=== PATIENT | female | born 1990 | race Caucasian/White ===

== ENCOUNTER 2017-08-25 07:07 | Inpatient (IN) | payer MEDICAID ==
[2017-08-25] MEDS ORDERED: Misoprostol 50 MCG (1/2 of 100 MCG) Tab VAG ONE ×2 (07:09→11:58)
[2017-08-25] MEDS ORDERED: fentaNYL 100 MCG/2 ML SDV IVPUSH PRN (08:02)
[2017-08-25] MEDS ORDERED: Sodium Chloride 0.9% 10 ML Syringe FLUSH PRN (08:02)
[2017-08-25] MEDS ORDERED: Ondansetron 4 MG Tab.DIS PO PRN (08:02)
--- NOTE | 2017-08-25 08:13 | PCM.LDHP ---
L&D History of Present Illness - General Date of Service: 08/25/17 (induction) Admit Problem/Dx: Patient Status Order with Admit Dx/Problem 08/25/17 08:02 Patient Status [ADT] Routine Admission Diagnosis/Problem Admission Diagnosis/Problem Source of Information: Patient History Limitations: Reports: No Limitations - History of Present Illness Introduction:: This 27 year old who is 40 weeks presents for induction of labor. 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 Psychiatric History: Reports: ADD, Panic Attack - Infectious Disease History Infectious Disease History: Reports: Chicken Pox - Past Surgical History GI Surgical History: Reports: Cholecystectomy Other GI Surgeries/Procedures: stools are loose after cholecystectomy, Primary care provider is aware. Social & Family History - Family History Family Medical History: Noncontributory - Tobacco Use Smoking Status *Q: Former Smoker Years of Tobacco use: 2 Packs/Tins Daily: 0.1 Used Tobacco, but Quit: Yes Month/Year Tobacco Last Used: October 2016 Second Hand Smoke Exposure: Yes - Caffeine Use Caffeine Use: Reports: Soda Other Caffeine Use: 2 pops per day - Alcohol Use Days Per Week of Alcohol Use: 0 - Recreational Drug Use Recreational Drug Use: No H&P Review of Systems - Review of Systems: Review Of Systems: See Below General: Reports: No Symptoms HEENT: Reports: No Symptoms Pulmonary: Reports: No Symptoms Cardiovascular: Reports: No Symptoms Gastrointestinal: Reports: No Symptoms Genitourinary: Reports: No Symptoms Musculoskeletal: Reports: No Symptoms Skin: Reports: No Symptoms Psychiatric: Reports: No Symptoms Neurological: Reports: No Symptoms Hematologic/Lymphatic: Reports: No Symptoms Immunologic: Reports: No Symptoms L&D Exam - Exam Exam: See Below - Vital Signs Vital Signs: Last Vital Signs Temp 98.6 F 08/25/17 07:09 Pulse 101 H 08/25/17 07:09 Resp 18 08/25/17 07:09 BP 102/47 L 08/25/17 07:09 Pulse Ox - OB Specific Movement: Active Heart Tones: Present Heart Tones per Min: 145 Heart Rate (FHR) Variability: Moderate (6-25 bmp) Presentation: Vertex Estimated Weight: 8 pounds - Field Score Field Score Cervix Position: Anterior Field Score Consistency: Soft Field Score Effacement: 51-70% Field Score Dilation: 1-2 cm Field Score 's Station: -1 ,0 Field Score Total: 9 - Exam General: Alert, Oriented HEENT: PERRLA, Conjunctiva Clear, EACs Clear, EOMI, Hearing Intact, Mucosa Moist & [place], Nares Patent, Normal Nasal Septum, Posterior Pharynx Clear, TMs Clear Neck: Supple, Trachea Midline Lungs: Clear to Auscultation, Normal Respiratory Effort Cardiovascular: Regular Rate, Regular Rhythm GI/Abdominal Exam: Normal Bowel Sounds, Soft, Non-Tender, No Organomegaly, No Distention, No Abnormal Bruit, No Mass, Pelvis Stable Rectal Exam: Normal Exam, Normal Rectal Tone Genitourinary: Cervical dilitation, Enlarged uterus Back Exam: Normal Inspection, Full Range of Motion Extremities: Normal Inspection, Normal Range of Motion, Non-Tender, No Pedal Edema, Normal Capillary Refill Skin: Warm, Dry, Intact Neurological: Cranial Nerves Intact, Reflexes Equal Bilateral Psychiatric: Alert, Normal Affect, Normal Mood - Patient Data Lab Results Last 24 hrs: Laboratory Results - last 24 hr 08/25/17 08/25/17 08/25/17 Range/Units 07:13 07:13 07:13 WBC 8.4 (4.5-11.0) K/uL RBC 4.35 (3.30-5.50) M/uL Hgb 12.0 (12.0-15.0) g/dL Hct 37.1 (36.0-48.0) % MCV 85 (80-98) fL MCH 28 (27-31) pg MCHC 32 (32-36) % Plt Count 164 (150-400) K/uL Neut % (Auto) 72 H (36-66) % Lymph % (Auto) 21 L (24-44) % [place] % (Auto) 6 (2-6) % Eos % (Auto) 1 L (2-4) % Baso % (Auto) 0 (0-1) % Urine Color Yellow Urine Appearance Cloudy Urine pH 6.0 (4.5-8.0) Ur Specific [place] 1.020 (1.008-1.030) Urine Protein Negative (NEGATIVE) mg/dL Urine Glucose (UA) Normal (NEGATIVE) mg/dL Urine Ketones Negative (NEGATIVE) mg/dL Urine Occult Blood Negative (NEGATIVE) Urine Nitrite Negative (NEGATIVE) Urine Bilirubin Negative (NEGATIVE) Urine Urobilinogen Normal (NORMAL) mg/dL Ur Leukocyte Esterase Large (NEGATIVE) Urine RBC Not seen (0-5) Urine WBC 20-30 H (0-5) Ur Epithelial Cells Many Amorphous Sediment Not seen Urine Bacteria Many Urine Mucus Many Urine Opiates Screen Negative (NEGATIVE) Ur Oxycodone Screen Negative (NEGATIVE) Urine Methadone Screen Negative (NEGATIVE) Ur Propoxyphene Screen Negative (NEGATIVE) Ur Barbiturates Screen Negative (NEGATIVE) Ur Tricyclics Screen Negative (NEGATIVE) Ur Phencyclidine Scrn Negative (NEGATIVE) Ur Amphetamine Screen Negative (NEGATIVE) U Methamphetamines Scrn Negative (NEGATIVE) Urine MDMA Screen Negative (NEGATIVE) U Benzodiazepines Scrn Negative (NEGATIVE) U Cocaine Metab Screen Negative (NEGATIVE) U Marijuana (THC) Screen Negative (NEGATIVE) Result Diagrams: 08/25/17 07:13 - Problem List (1) Elective induction of labor planned SNOMED Code(s): 968702733 ICD Code: [id number] - Status: Acute Current Visit: Yes (2) SNOMED Code(s): 09102735 ICD Code: Z34.90 - ENCNTR FOR SUPRVSN OF NORMAL , UNSP, UNSP TRIMESTER Status: Acute Current Visit: Yes Qualifiers: Weeks of gestation: 40 weeks Qualified Code(s): Z3A.40 - 40 weeks gestation of Problem List Initiated/Reviewed/Updated: Yes Orders Last 24hrs: Active Orders 24 hr Category Date Time Status Patient Status [ADT] Routine ADT 08/25/17 08:02 Ordered Antiembolic Devices [RC] .Routine Care 08/25/17 08:05 Ordered Communication Order [RC] ASDIRECTED Care 08/25/17 08:02 Ordered Heart Tones [RC] PER UNIT ROUTINE Care 08/25/17 08:02 Ordered Notify Provider Vital Signs [RC] PRN Care 08/25/17 08:02 Ordered Notify Provider [RC] PRN Care 08/25/17 08:02 Ordered Up ad Bertha [RC] ASDIRECTED Care 08/25/17 08:02 Ordered VTE/DVT Education [RC] Click to Edit Care 08/25/17 08:05 Ordered Vital Signs [RC] PER UNIT ROUTINE Care 08/25/17 08:02 Ordered Clear Liquid Diet [DIET] Diet 08/25/17 Lunch Ordered CBC W/O DIFF,HEMOGRAM [HEME] Urgent Lab 08/25/17 08:02 Ordered Acetaminophen [Tylenol] Med 08/25/17 08:02 Ordered 650 mg PO Q4H PRN Ondansetron [Zofran ODT] Med 08/25/17 08:02 Ordered 4 mg PO Q4H PRN Sodium Chloride 0.9% [Saline Flush] Med 08/25/17 08:02 Ordered 10 ml FLUSH ASDIRECTED PRN fentaNYL [Sublimaze] Med 08/25/17 08:02 Ordered 100 mcg IVPUSH Q1H PRN DVT/VTE Prophylaxis Reflex [OM.PC] Routine Oth 08/25/17 08:02 Ordered Saline Lock Insert [OM.PC] Routine Oth 08/25/17 08:02 Ordered Resuscitation Status Routine Resus Stat 08/25/17 08:02 Ordered Assessment/Plan Comment:: 27 yr old 40 weeks induction per patient request Field score 9 60/-1 anterior, Cat 1 strip Misoprostol 50 mcg this morning HGB 12 PLT 164,000 Plan for vaginal delivery alter today reassess at noon She would like an epidural later today
--- NOTE | 2017-08-25 12:27 | PCM.PNLD ---
Labor Progress Note - VS & Meds Vital Signs: Last Vital Signs Temp 97.6 F 08/25/17 08:40 Pulse 100 08/25/17 08:40 Resp 18 08/25/17 08:40 BP 121/67 08/25/17 08:40 Pulse Ox 98 08/25/17 08:40 Active Medications: Current Medications Acetaminophen (Tylenol) 650 mg PO Q4H PRN PRN Reason: Pain (Mild 1-3) and fever Fentanyl (Sublimaze) 100 mcg IVPUSH Q1H PRN PRN Reason: Pain (moderate 4-6) Ondansetron HCl (Zofran Odt) 4 mg PO Q4H PRN PRN Reason: Nausea/Vomiting Sodium Chloride (Saline Flush) 10 ml FLUSH ASDIRECTED PRN PRN Reason: Keep Vein Open Discontinued Medications Misoprostol (Cytotec) 50 mcg VAG ONETIME ONE Stop: 08/25/17 07:10 Last Admin: 08/25/17 07:50 Dose: 50 mcg Misoprostol (Cytotec) 50 mcg VAG ONETIME ONE Stop: 08/25/17 11:59 - Uterine Contractions Uterine Monitoring Mode: External [place] Contraction Frequency (min): 5-7 Contraction Duration (sec): 60-70 Contraction Intensity: Mild Uterine Resting Tone: Soft - Monitoring Heart Rate (FHR) Baseline: 140 Heart Rate (FHR) Variability: Minimal (0-5 bpm) Accelerations: Present with Movement Decelerations: None Strip Review: Category I - Vaginal Exam Dilation (cm): 1 Effacement (Percent): 60 Station: 0 Cervical Position: Anterior Sterile Vaginal Exam Performed By: Chuyita Harper Vaginal Exam Comment: Cytotec 50 mcg\vag - Labor Progress (Free Text) Labor Progress: 08/25/17 cervical assessment the same Repeat dose of Misoprostol 50 mcg reassess at 1530 Planning for vaginal delivery
[2017-08-25] MEDS ORDERED: Lactated Ringers 1,000 ML IV SCH (12:45)
[2017-08-25] MEDS ORDERED: Lactated Ringers 1,000 ML IV ONE (15:11)
[2017-08-25] MEDS ORDERED: ePHEDrine 50 MG/ML SDV IVPUSH ONE (15:11)
--- NOTE | 2017-08-25 15:15 | PCM.PNLD ---
Labor Progress Note - VS & Meds Vital Signs: Last Vital Signs Temp 97.5 F 08/25/17 12:20 Pulse 96 08/25/17 13:05 Resp 18 08/25/17 13:05 BP 115/57 L 08/25/17 13:05 Pulse Ox 98 08/25/17 13:05 Active Medications: Current Medications Acetaminophen (Tylenol) 650 mg PO Q4H PRN PRN Reason: Pain (Mild 1-3) and fever Fentanyl (Sublimaze) 100 mcg IVPUSH Q1H PRN PRN Reason: Pain (moderate 4-6) Oxytocin/Sodium Chloride (Pitocin In Ns 20 Units/1,000 Ml) 1,000 mls @ 6 mls/ hr IV TITRATE GABRIELA; Protocol Ondansetron HCl (Zofran Odt) 4 mg PO Q4H PRN PRN Reason: Nausea/Vomiting Sodium Chloride (Saline Flush) 10 ml FLUSH ASDIRECTED PRN PRN Reason: Keep Vein Open Discontinued Medications Lactated Ringer's (Ringers, Lactated) 1,000 mls @ 999 mls/hr IV BOLUS GABRIELA Stop: 08/25/17 13:46 Last Admin: 08/25/17 12:30 Dose: 999 mls/hr Misoprostol (Cytotec) 50 mcg VAG ONETIME ONE Stop: 08/25/17 07:10 Last Admin: 08/25/17 07:50 Dose: 50 mcg Misoprostol (Cytotec) 50 mcg VAG ONETIME ONE Stop: 08/25/17 11:59 Last Admin: 08/25/17 12:20 Dose: 50 mcg - Uterine Contractions Uterine Monitoring Mode: External [place], None in Use Contraction Frequency (min): 3-7 Contraction Duration (sec): 30-70 Contraction Intensity: Mild to Moderate Uterine Resting Tone: Soft - Monitoring Heart Rate (FHR) Baseline: 140 Heart Rate (FHR) Variability: Minimal (0-5 bpm) Accelerations: Present with Movement Decelerations: None Strip Review: Category I - Vaginal Exam Dilation (cm): 2 Effacement (Percent): 75 Station: 0 Cervical Position: Anterior Sterile Vaginal Exam Performed By: Chuyita Harper Vaginal Exam Comment: progress since last check - Labor Progress (Free Text) Labor Progress: 08/25/17 starting pitocin Epidural bolus done and ready reassess at 1730
--- NOTE | 2017-08-25 17:47 | PCM.PNLD ---
Labor Progress Note - VS & Meds Vital Signs: Last Vital Signs Temp 97.7 F 08/25/17 15:30 Pulse 102 H 08/25/17 16:06 Resp 18 08/25/17 16:06 BP 123/61 08/25/17 16:06 Pulse Ox 97 08/25/17 16:06 Active Medications: Current Medications Acetaminophen (Tylenol) 650 mg PO Q4H PRN PRN Reason: Pain (Mild 1-3) and fever Fentanyl (Sublimaze) 100 mcg IVPUSH Q1H PRN PRN Reason: Pain (moderate 4-6) Oxytocin/Sodium Chloride (Pitocin In Ns 20 Units/1,000 Ml) 20 unit in 1,000 mls @ 6 mls/hr IV TITRATE GABRIELA; Protocol Last Titration: 08/25/17 17:06 Dose: 7 munits/min, 21 mls/hr Ondansetron HCl (Zofran Odt) 4 mg PO Q4H PRN PRN Reason: Nausea/Vomiting Sodium Chloride (Saline Flush) 10 ml FLUSH ASDIRECTED PRN PRN Reason: Keep Vein Open Discontinued Medications Ephedrine Sulfate (Ephedrine Sulfate) 5 mg IVPUSH ONETIME ONE Stop: 08/25/17 15:12 Lactated Ringer's (Ringers, Lactated) 1,000 mls @ 999 mls/hr IV BOLUS GABRIELA Stop: 08/25/17 13:46 Last Admin: 08/25/17 12:30 Dose: 999 mls/hr Lactated Ringer's (Ringers, Lactated) 1,000 mls @ 999 mls/hr IV .BOLUS ONE Stop: 08/25/17 16:11 Last Admin: 08/25/17 15:32 Dose: 999 mls/hr Misoprostol (Cytotec) 50 mcg VAG ONETIME ONE Stop: 08/25/17 07:10 Last Admin: 08/25/17 07:50 Dose: 50 mcg Misoprostol (Cytotec) 50 mcg VAG ONETIME ONE Stop: 08/25/17 11:59 Last Admin: 08/25/17 12:20 Dose: 50 mcg - Uterine Contractions Uterine Monitoring Mode: External [place] Contraction Frequency (min): 1-3 Contraction Duration (sec): 30-50 Contraction Intensity: Moderate Uterine Resting Tone: Soft - Monitoring Heart Rate (FHR) Baseline: 140 Heart Rate (FHR) Variability: Moderate (6-25 bmp) Accelerations: Present with Movement Decelerations: None Strip Review: Category I - Vaginal Exam Dilation (cm): 3 Effacement (Percent): 80 Station: 0 Cervical Position: Anterior Sterile Vaginal Exam Performed By: Chuyita Harper Vaginal Exam Comment: arom clear - Labor Progress (Free Text) Labor Progress: 08/25/17 Pitocin infusing AROm done with clear fluid plan epidural delivery later
[2017-08-25] MEDS: Acetaminophen 325 MG Tab PO PRN (18:12)
[2017-08-25] MEDS ORDERED: ePHEDrine 50 MG/ML SDV ONE (18:39)
[2017-08-25] MEDS ORDERED: Ropivacaine 0 ML ONE (18:39)
[2017-08-25] MEDS ORDERED: Ropivacaine 200 MG in Premix Bag 1 BAG EPIDUR SCH (18:45)
[2017-08-25] MEDS ORDERED: Ropivacaine HCl/PF 200 ML ONE (19:41)
[2017-08-25] MEDS ORDERED: Lanolin 100% Cream 40 GM Tube TOP PRN (20:56)
[2017-08-25] MEDS ORDERED: Acetaminophen/Codeine 300-30 MG Tab PO PRN (20:56)
--- NOTE | 2017-08-25 21:13 | PCM.DEL ---
L & D Note - General Info Date of Service: 08/25/17 (delivery) Mother's Due Date: 08/25/17 - Delivery Note Labor: Induced by Oxytocin Cervical Ripening Method: Misoprostil Delivery Outcome: Livebirth Infant Delivery Method: Spontaneous Vaginal Delivery-Single Delivery Mode: Spontaneous Presentation: Vertex Nuchal Cord: Present Anesthesia Type: Epidural Amniotic Fluid Description: Clear Laceration: None Placenta: Intact, Spontaneous Cord: 3 Vessels Resuscitation Needed: No [place]: Bulb Syringe, Stimulated, Warmed Provider: Chuyita Harper Score 1 min: 8 Score 5 min: 9 Second Stage Interventions: Reports: Pushing Effectively, Pushing, McRobert's Position Delivery Comments (Free Text/Narrative):: 08/25/17 This 27 year old G3 now P3 who is 40 weeks gestation delivered via at 2031 in LD position a viable female over an intact perineum. She had a nuchal cord which was reduced before delivery of the body. She was placed on mother's abdomen where she was dried and stimulated. She cried spontaneously. Apgars 8,9. Three vessel cord. Weight 8-4. Placenta was expressed spontaneously intact, sarai. No lacerations of the cervix, vagina,rectum or perineum were found. EBL zero Mother and baby to post and nursery in stable condition. First stage 9727-0450 Second stage 9867-9113 Thirds [id number] Induction Criteria - Field Score Field Score Dilation: 1-2 cm Field Score Effacement: 60-70% Field Score Infant's Station: -1 ,0 Field Score Consistency: Soft Field Score Cervix Position: Anterior Field Score Total: 9 Field Score Presenting Part: Reports: Cephalic - Induction Gestational Age >/= 39 wks: Yes Estimated Pelvis: Reports: Adequate Reassuring Monitoring Strip: Yes Absence of Tachy Systole: Yes - General Info Admission Dx/Problem (Free Text): Patient Status Order with Admit Dx/Problem 08/25/17 08:02 Patient Status [ADT] Routine Admission Diagnosis/Problem Admission Diagnosis/Problem Functional Status: Reports: Pain Controlled - Review of Systems General: Reports: No Symptoms HEENT: Reports: No Symptoms Pulmonary: Reports: No Symptoms Cardiovascular: Reports: No Symptoms Gastrointestinal: Reports: No Symptoms Genitourinary: Reports: No Symptoms Musculoskeletal: Reports: No Symptoms Skin: Reports: No Symptoms Neurological: Reports: No Symptoms Psychiatric: Reports: No Symptoms - Patient Data Vitals - Most Recent: Last Vital Signs Temp 98.8 F 08/25/17 19:29 Pulse 93 08/25/17 19:29 Resp 18 08/25/17 19:35 BP 130/75 08/25/17 19:40 Pulse Ox 98 08/25/17 19:29 Weight - Most Recent: 303 lb 15.997 oz I&O - Last 24 Hours: Intake & Output 08/25/17 08/25/17 08/25/17 06:59 14:59 22:59 Intake Total 1400 Balance 1400 Lab Results Last 24 Hours: Laboratory Results - last 24 hr 08/25/17 08/25/17 08/25/17 Range/Units 07:13 07:13 07:13 WBC 8.4 (4.5-11.0) K/uL RBC 4.35 (3.30-5.50) M/uL Hgb 12.0 (12.0-15.0) g/dL Hct 37.1 (36.0-48.0) % MCV 85 (80-98) fL MCH 28 (27-31) pg MCHC 32 (32-36) % Plt Count 164 (150-400) K/uL Neut % (Auto) 72 H (36-66) % Lymph % (Auto) 21 L (24-44) % [place] % (Auto) 6 (2-6) % Eos % (Auto) 1 L (2-4) % Baso % (Auto) 0 (0-1) % Urine Color Yellow Urine Appearance Cloudy Urine pH 6.0 (4.5-8.0) Ur Specific [place] 1.020 (1.008-1.030) Urine Protein Negative (NEGATIVE) mg/dL Urine Glucose (UA) Normal (NEGATIVE) mg/dL Urine Ketones Negative (NEGATIVE) mg/dL Urine Occult Blood Negative (NEGATIVE) Urine Nitrite Negative (NEGATIVE) Urine Bilirubin Negative (NEGATIVE) Urine Urobilinogen Normal (NORMAL) mg/dL Ur Leukocyte Esterase Large (NEGATIVE) Urine RBC Not seen (0-5) Urine WBC 20-30 H (0-5) Ur Epithelial Cells Many Amorphous Sediment Not seen Urine Bacteria Many Urine Mucus Many Urine Opiates Screen Negative (NEGATIVE) Ur Oxycodone Screen Negative (NEGATIVE) Urine Methadone Screen Negative (NEGATIVE) Ur Propoxyphene Screen Negative (NEGATIVE) Ur Barbiturates Screen Negative (NEGATIVE) Ur Tricyclics Screen Negative (NEGATIVE) Ur Phencyclidine Scrn Negative (NEGATIVE) Ur Amphetamine Screen Negative (NEGATIVE) U Methamphetamines Scrn Negative (NEGATIVE) Urine MDMA Screen Negative (NEGATIVE) U Benzodiazepines Scrn Negative (NEGATIVE) U Cocaine Metab Screen Negative (NEGATIVE) U Marijuana (THC) Screen Negative (NEGATIVE) Med Orders - Current: Current Medications Acetaminophen (Tylenol) 650 mg PO Q4H PRN PRN Reason: Pain (Mild 1-3) and fever Last Admin: 08/25/17 18:12 Dose: 650 mg Fentanyl (Sublimaze) 100 mcg IVPUSH Q1H PRN PRN Reason: Pain (moderate 4-6) Oxytocin/Sodium Chloride (Pitocin In Ns 20 Units/1,000 Ml) 20 unit in 1,000 mls @ 6 mls/hr IV TITRATE GABRIELA; Protocol Last Titration: 08/25/17 17:48 Dose: 9 munits/min, 27 mls/hr Ropivacaine 200 mg/ Premix 100 mls @ 12 mls/hr EPIDUR ASDIRECTED GABRIELA Ondansetron HCl (Zofran Odt) 4 mg PO Q4H PRN PRN Reason: Nausea/Vomiting Sodium Chloride (Saline Flush) 10 ml FLUSH ASDIRECTED PRN PRN Reason: Keep Vein Open Discontinued Medications Ephedrine Sulfate (Ephedrine Sulfate) 5 mg IVPUSH ONETIME ONE Stop: 08/25/17 15:12 Ephedrine Sulfate (Ephedrine Sulfate) Confirm Administered Dose 50 mg .ROUTE .STK-MED ONE Stop: 08/25/17 18:40 Lactated Ringer's (Ringers, Lactated) 1,000 mls @ 999 mls/hr IV BOLUS GABRIELA Stop: 08/25/17 13:46 Last Admin: 08/25/17 12:30 Dose: 999 mls/hr Lactated Ringer's (Ringers, Lactated) 1,000 mls @ 999 mls/hr IV .BOLUS ONE Stop: 08/25/17 16:11 Last Admin: 08/25/17 15:32 Dose: 999 mls/hr Ropivacaine (Naropin 0.2%) Confirm Administered Dose 100 mls @ as directed .ROUTE .STK-MED ONE Stop: 08/25/17 18:40 Ropivacaine (Naropin 0.2%) Confirm Administered Dose 200 mls @ as directed .ROUTE .STK-MED ONE Stop: 08/25/17 19:42 Misoprostol (Cytotec) 50 mcg VAG ONETIME ONE Stop: 08/25/17 07:10 Last Admin: 08/25/17 07:50 Dose: 50 mcg Misoprostol (Cytotec) 50 mcg VAG ONETIME ONE Stop: 08/25/17 11:59 Last Admin: 08/25/17 12:20 Dose: 50 mcg - Exam General: Alert, Oriented HEENT: Pupils Equal, Pupils Reactive, EOMI, Mucous Membr. Moist/[place] Neck: Supple Lungs: Clear to Auscultation, Normal Respiratory Effort Cardiovascular: Regular Rate, Regular Rhythm GI/Abdominal Exam: Normal Bowel Sounds, Soft, Non-Tender, No Organomegaly, No Distention, No Abnormal Bruit, No Mass, Pelvis Stable (Female) Exam: Normal External Exam, Normal Speculum Exam, Normal Bimanual Exam, Cervical Dilatation, Enlarged Uterus, Vaginal Bleeding Back Exam: Normal Inspection, Full Range of Motion Extremities: Normal Inspection, Normal Range of Motion, Non-Tender, No Pedal Edema, Normal Capillary Refill Skin: Warm, Dry, Intact Wound/Incisions: Healing Well Neurological: No New Focal Deficit Psy/Mental Status: Alert, Normal Affect, Normal Mood - Problem List & Annotations (1) Elective induction of labor planned SNOMED Code(s): 739293690 Code(s): NEO9638 - Status: Acute Current Visit: Yes (2) SNOMED Code(s): 72774370 Code(s): Z34.90 - ENCNTR FOR SUPRVSN OF NORMAL , UNSP, UNSP TRIMESTER Status: Acute Current Visit: Yes Qualifiers: Weeks of gestation: 40 weeks Qualified Code(s): Z3A.40 - 40 weeks gestation of (3) Normal labor and delivery SNOMED Code(s): 73985635, 745913826 Code(s): O80 - ENCOUNTER FOR FULL-TERM UNCOMPLICATED DELIVERY Status: Acute Current Visit: Yes - Problem List Review Problem List Initiated/Reviewed/Updated: Yes - My Orders Last 24 Hours: My Active Orders 08/25/17 08:02 Communication Order [RC] ASDIRECTED Notify Provider Vital Signs [RC] PRN Notify Provider [RC] PRN Up ad Bertha [RC] ASDIRECTED Vital Signs [RC] PER UNIT ROUTINE Acetaminophen [Tylenol] 650 mg PO Q4H PRN Ondansetron [Zofran ODT] 4 mg PO Q4H PRN Sodium Chloride 0.9% [Saline Flush] 10 ml FLUSH ASDIRECTED PRN fentaNYL [Sublimaze] 100 mcg IVPUSH Q1H PRN DVT/VTE Prophylaxis Reflex [OM.PC] Routine Saline Lock Insert [OM.PC] Routine Resuscitation Status Routine 08/25/17 08:05 VTE/DVT Education [RC] Click to Edit 08/25/17 15:11 Local Anesthetic Infusion Pump [RC] ASDIRECTED PCEA Epidural [RC] ASDIRECTED Epidural Catheter Management [OM.PC] Urgent 08/25/17 15:15 Oxytocin/Normal Saline [Pitocin in NS 20 Units/1,000 ML] 20 unit in 1,000 ml IV TITRATE 08/25/17 18:45 Ropivacaine [Naropin 0.2%] 200 mg Premix Bag 1 bag EPIDUR ASDIRECTED 08/25/17 20:56 Patient Status [ADT] Routine Urinary Catheter Removal [RC] Per Unit Routine Vital Signs [RC] PFP Acetaminophen/Codeine [Tylenol with Codeine No.3 300MG/30MG] 1 tab PO Q4H PRN Lanolin [Lansinoh HPA] 1 gm TOP ASDIRECTED PRN Assess Lochia [WOMSER] Per Unit Routine Assess Uterine Involution [WOMSER] Per Unit Routine 08/25/17 20:57 Ice Therapy [OM.PC] Per Unit Routine Perineal Care [OM.PC] Per Unit Routine Peripheral IV Discontinue [OM.PC] Routine Sitz Bath [OM.PC] Per Unit Routine 08/25/17 Lunch Clear Liquid Diet [DIET] 08/26/17 05:11 CBC WITH AUTO DIFF [HEME] AM 08/26/17 Breakfast Regular Diet [DIET] - Assessment Assessment:: 08/25/17 27 year old 40 weeks with complications female GBS neg ABO O neg, rhogam workup - Plan Plan:: 27 yr old 40 weeks induction per patient request Field score 9 60/-1 anterior, Cat 1 strip Misoprostol 50 mcg this morning HGB 12 PLT 164,000 Plan for vaginal delivery alter today reassess at noon She would like an epidural later today 08/25/17 Routine cares Rhogam if needed Support home 24-48 hours
[2017-08-25] MEDS ORDERED: Ibuprofen 200 MG Tab, 24 Tab Bulk Bottle PO PRN (21:20)
[2017-08-25] MEDS ORDERED: Acetaminophen 325 MG Tab, 50 Tab Bulk Bottle PO PRN (21:20)
--- NOTE | 2017-08-26 01:07 | ANES ---
DATE OF SERVICE: 08/25/2017 INDICATION: Jordana is a 27-year-old female patient of Chuyita Harper in her obstetrics unit. She has some prolonged stage II labor, #[id number]. I was requested by Chuyita aHrper to assess the patient for labor epidural placement. Upon reviewing the patient's history and lab work, we found no contraindication to epidural placement. I discussed with her risks and benefits. She was okay to proceed and consent was received. DESCRIPTION OF PROCEDURE: I had her seated at the edge of the bed. Betadine prep x3 to the lumbar region with a sterile drape placed. 1% lidocaine skin wheal as well as deep at approximately the L3-L4 region. A 17-gauge Tuohy was placed to loss of resistance. Negative CSF, negative heme, negative paresthesia. I then placed a silicone catheter to 15 cm, removed the needle, secured the catheter, and infused a test dose of 3 mL of 1.5% lidocaine with 1:200,000 epinephrine. The catheter was then secured. There was negative sequelae. I then dosed the patient with 12 mL of 0.2% ropivacaine and began infusion of the same 12 mL an hour of 0.2% ropivacaine. Please refer to nurse's notes for vital signs and neuro status, which were within normal limits and unchanged. Again, she tolerated the procedure quite well. I reported off to nurse of the procedure. Thank you for the consult. Timbo Sahni CRNA /[id number]
[2017-08-26] MEDS: Acetaminophen 325 MG Tab PO PRN (07:30)
--- NOTE | 2017-08-26 11:51 | PCM.PNPP ---
- General Info Date of Service: 08/26/17 (PPD 1) Admission Dx/Problem (Free Text): Patient Status Order with Admit Dx/Problem 08/25/17 08:02 Patient Status [ADT] Routine Admission Diagnosis/Problem Admission Diagnosis/Problem Functional Status: Reports: Pain Controlled - Review of Systems General: Reports: No Symptoms HEENT: Reports: No Symptoms Pulmonary: Reports: No Symptoms Cardiovascular: Reports: No Symptoms Gastrointestinal: Reports: No Symptoms Genitourinary: Reports: No Symptoms Musculoskeletal: Reports: No Symptoms Skin: Reports: No Symptoms Neurological: Reports: No Symptoms Psychiatric: Reports: No Symptoms - Patient Data Vital Signs - Most Recent: Last Vital Signs Temp 97.6 F 08/26/17 11:24 Pulse 117 H 08/26/17 11:24 Resp 24 H 08/26/17 11:24 BP 155/87 H 08/26/17 11:24 Pulse Ox 98 08/26/17 11:24 Weight - Most Recent: 303 lb 15.997 oz I&O - Last 24 Hours: Intake & Output 08/25/17 08/26/17 08/26/17 22:59 06:59 14:59 Intake Total 620 Balance 620 Lab Results - Last 24 Hours: Laboratory Results - last 24 hr 08/26/17 Range/Units 04:55 WBC 12.4 H (4.5-11.0) K/uL RBC 3.73 (3.30-5.50) M/uL Hgb 10.2 L (12.0-15.0) g/dL Hct 32.0 L (36.0-48.0) % MCV 86 (80-98) fL MCH 27 (27-31) pg MCHC 32 (32-36) % Plt Count 140 L (150-400) K/uL Neut % (Auto) 75 H (36-66) % Lymph % (Auto) 17 L (24-44) % [place] % (Auto) 8 H (2-6) % Eos % (Auto) 1 L (2-4) % Baso % (Auto) 0 (0-1) % Med Orders - Current: Current Medications Acetaminophen (Tylenol) 650 mg PO Q4H PRN PRN Reason: Pain (Mild 1-3) and fever Last Admin: 08/26/17 07:30 Dose: 650 mg Acetaminophen (Tylenol Bulk Bottle) 325 - 650 mg PO Q4H PRN PRN Reason: Pain Last Admin: 08/25/17 22:34 Dose: 650 mg Acetaminophen/Codeine Phosphate (Tylenol With Codeine No.3 300mg/30mg) 1 tab PO Q4H PRN PRN Reason: Pain (moderate 4-6) Emollient Ointment (Lansinoh Hpa) 0 gm TOP ASDIRECTED PRN PRN Reason: Sore Nipples Fentanyl (Sublimaze) 100 mcg IVPUSH Q1H PRN PRN Reason: Pain (moderate 4-6) Oxytocin/Sodium Chloride (Pitocin In Ns 20 Units/1,000 Ml) 20 unit in 1,000 mls @ 6 mls/hr IV TITRATE GABRIELA; Protocol Last Admin: 08/25/17 20:33 Dose: 9 munits/min, 999 mls/hr Ropivacaine 200 mg/ Premix 100 mls @ 12 mls/hr EPIDUR ASDIRECTED GABRIELA Ibuprofen (Motrin Bulk Bottle) 600 mg PO Q6H PRN PRN Reason: Pain Last Admin: 08/25/17 22:34 Dose: 600 mg Ondansetron HCl (Zofran Odt) 4 mg PO Q4H PRN PRN Reason: Nausea/Vomiting Sodium Chloride (Saline Flush) 10 ml FLUSH ASDIRECTED PRN PRN Reason: Keep Vein Open Last Admin: 08/26/17 09:29 Dose: 10 ml Discontinued Medications Ephedrine Sulfate (Ephedrine Sulfate) 5 mg IVPUSH ONETIME ONE Stop: 08/25/17 15:12 Last Admin: 08/25/17 22:31 Dose: Not Given Ephedrine Sulfate (Ephedrine Sulfate) Confirm Administered Dose 50 mg .ROUTE .STK-MED ONE Stop: 08/25/17 18:40 Last Admin: 08/25/17 22:31 Dose: Not Given Lactated Ringer's (Ringers, Lactated) 1,000 mls @ 999 mls/hr IV BOLUS GABRIELA Stop: 08/25/17 13:46 Last Admin: 08/25/17 12:30 Dose: 999 mls/hr Lactated Ringer's (Ringers, Lactated) 1,000 mls @ 999 mls/hr IV .BOLUS ONE Stop: 08/25/17 16:11 Last Admin: 08/25/17 15:32 Dose: 999 mls/hr Ropivacaine (Naropin 0.2%) Confirm Administered Dose 100 mls @ as directed .ROUTE .STK-MED ONE Stop: 08/25/17 18:40 Last Admin: 08/25/17 22:31 Dose: Not Given Ropivacaine (Naropin 0.2%) Confirm Administered Dose 200 mls @ as directed .ROUTE .STK-MED ONE Stop: 08/25/17 19:42 Misoprostol (Cytotec) 50 mcg VAG ONETIME ONE Stop: 08/25/17 07:10 Last Admin: 08/25/17 07:50 Dose: 50 mcg Misoprostol (Cytotec) 50 mcg VAG ONETIME ONE Stop: 08/25/17 11:59 Last Admin: 08/25/17 12:20 Dose: 50 mcg - Interaction Disposition, : in Room with Family Interaction: Holding Infant Feeding: Bottle Fed Infant, Difficulty with Latch-on, Encouraged to Breastfeed Support Person: , Other (see below) - Recovery Exam Fundal Tone: Firm Fundal Level: At Umbilicus Fundal Placement: Midline Lochia Amount: Moderate Lochia Color: Rubra/Red Perineum Description: Intact, Minimal Bruising/Swelling Episiotomy/Laceration: None Bladder Status: Voiding Urinary Elimination: Voided - Exam General: Alert, Oriented HEENT: Pupils Equal Neck: Supple Lungs: Clear to Auscultation, Normal Respiratory Effort Cardiovascular: Regular Rate, Regular Rhythm GI/Abdominal Exam: Normal Bowel Sounds, Soft, Non-Tender, No Organomegaly, No Distention, No Abnormal Bruit, No Mass, Pelvis Stable Extremities: Normal Inspection, Normal Range of Motion, Non-Tender, No Pedal Edema, Normal Capillary Refill Skin: Warm, Dry, Intact Wound/Incisions: Healing Well Neurological: No New Focal Deficit Psy/Mental Status: Alert, Normal Affect, Normal Mood - Problem List & Annotations (1) Elective induction of labor planned SNOMED Code(s): 543225465 Code(s): MIA8221 - Status: Acute Current Visit: Yes (2) SNOMED Code(s): 81312447 Code(s): Z34.90 - ENCNTR FOR SUPRVSN OF NORMAL , UNSP, UNSP TRIMESTER Status: Acute Current Visit: Yes Qualifiers: Weeks of gestation: 40 weeks Qualified Code(s): Z3A.40 - 40 weeks gestation of (3) Normal labor and delivery SNOMED Code(s): 78118426, 900093060 Code(s): O80 - ENCOUNTER FOR FULL-TERM UNCOMPLICATED DELIVERY Status: Acute Current Visit: Yes - Problem List Review Problem List Initiated/Reviewed/Updated: Yes - My Orders Last 24 Hours: My Active Orders 08/25/17 15:11 Epidural Catheter Management [OM.PC] Urgent 08/25/17 15:15 Oxytocin/Normal Saline [Pitocin in NS 20 Units/1,000 ML] 20 unit in 1,000 ml IV TITRATE 08/25/17 18:45 Ropivacaine [Naropin 0.2%] 200 mg Premix Bag 1 bag EPIDUR ASDIRECTED 08/25/17 20:56 Patient Status [ADT] Routine Vital Signs [RC] Q4H Acetaminophen/Codeine [Tylenol with Codeine No.3 300MG/30MG] 1 tab PO Q4H PRN Lanolin [Lansinoh HPA] 0 gm TOP ASDIRECTED PRN Assess Lochia [WOMSER] Per Unit Routine Assess Uterine Involution [WOMSER] Per Unit Routine 08/25/17 20:57 Ice Therapy [OM.PC] Per Unit Routine Perineal Care [OM.PC] Per Unit Routine Peripheral IV Discontinue [OM.PC] Routine Sitz Bath [OM.PC] Per Unit Routine 08/25/17 21:20 Acetaminophen [Tylenol Bulk Bottle] 325 - 650 mg PO Q4H PRN Ibuprofen [Motrin Bulk Bottle] 600 mg PO Q6H PRN 08/26/17 Breakfast Regular Diet [DIET] - Assessment Assessment:: 08/25/17 27 year old 40 weeks with complications female GBS neg ABO O neg, rhogam workup 08/26/17 Feeling great Flow is light Mood happy Is pumping and feeding and using formula too. HGB 10.2 - Plan Plan:: 27 yr old 40 weeks induction per patient request Field score 9 60/-1 anterior, Cat 1 strip Misoprostol 50 mcg this morning HGB 12 PLT 164,000 Plan for vaginal delivery alter today reassess at noon She would like an epidural later today 08/25/17 Routine cares Rhogam if needed Support home 24-48 hours- 08/26/17 Routine cares I don't see the workup for the Rhogam done yet. Home tomorrow
[2017-08-27 08:10] VITALS: BP 132/96
--- NOTE | 2017-08-27 08:31 | PCM.PNPP ---
- General Info Date of Service: 08/27/17 (PPD 2 D/C) Admission Dx/Problem (Free Text): Patient Status Order with Admit Dx/Problem 08/25/17 08:02 Patient Status [ADT] Routine Admission Diagnosis/Problem Admission Diagnosis/Problem Functional Status: Reports: Pain Controlled - Review of Systems General: Reports: No Symptoms HEENT: Reports: No Symptoms Pulmonary: Reports: No Symptoms Cardiovascular: Reports: No Symptoms Gastrointestinal: Reports: No Symptoms Genitourinary: Reports: No Symptoms Musculoskeletal: Reports: No Symptoms Skin: Reports: No Symptoms Neurological: Reports: No Symptoms Psychiatric: Reports: No Symptoms - Patient Data Vital Signs - Most Recent: Last Vital Signs Temp 97.2 F 08/27/17 08:09 Pulse 93 08/27/17 08:09 Resp 18 08/27/17 08:09 BP 132/96 H 08/27/17 08:09 Pulse Ox 98 08/27/17 08:09 Weight - Most Recent: 303 lb 15.997 oz I&O - Last 24 Hours: Intake & Output 08/26/17 08/27/17 08/27/17 22:59 06:59 14:59 Intake Total 840 Balance 840 Med Orders - Current: Current Medications Acetaminophen (Tylenol) 650 mg PO Q4H PRN PRN Reason: Pain (Mild 1-3) and fever Last Admin: 08/26/17 07:30 Dose: 650 mg Acetaminophen (Tylenol Bulk Bottle) 325 - 650 mg PO Q4H PRN PRN Reason: Pain Last Admin: 08/25/17 22:34 Dose: 650 mg Acetaminophen/Codeine Phosphate (Tylenol With Codeine No.3 300mg/30mg) 1 tab PO Q4H PRN PRN Reason: Pain (moderate 4-6) Emollient Ointment (Lansinoh Hpa) 0 gm TOP ASDIRECTED PRN PRN Reason: Sore Nipples Fentanyl (Sublimaze) 100 mcg IVPUSH Q1H PRN PRN Reason: Pain (moderate 4-6) Oxytocin/Sodium Chloride (Pitocin In Ns 20 Units/1,000 Ml) 20 unit in 1,000 mls @ 6 mls/hr IV TITRATE GABRIELA; Protocol Last Admin: 08/25/17 20:33 Dose: 9 munits/min, 999 mls/hr Ropivacaine 200 mg/ Premix 100 mls @ 12 mls/hr EPIDUR ASDIRECTED GABRIELA Ibuprofen (Motrin Bulk Bottle) 600 mg PO Q6H PRN PRN Reason: Pain Last Admin: 08/25/17 22:34 Dose: 600 mg Ondansetron HCl (Zofran Odt) 4 mg PO Q4H PRN PRN Reason: Nausea/Vomiting Sodium Chloride (Saline Flush) 10 ml FLUSH ASDIRECTED PRN PRN Reason: Keep Vein Open Last Admin: 08/26/17 09:29 Dose: 10 ml Discontinued Medications Ephedrine Sulfate (Ephedrine Sulfate) 5 mg IVPUSH ONETIME ONE Stop: 08/25/17 15:12 Last Admin: 08/25/17 22:31 Dose: Not Given Ephedrine Sulfate (Ephedrine Sulfate) Confirm Administered Dose 50 mg .ROUTE .STK-MED ONE Stop: 08/25/17 18:40 Last Admin: 08/25/17 22:31 Dose: Not Given Lactated Ringer's (Ringers, Lactated) 1,000 mls @ 999 mls/hr IV BOLUS GABRIELA Stop: 08/25/17 13:46 Last Admin: 08/25/17 12:30 Dose: 999 mls/hr Lactated Ringer's (Ringers, Lactated) 1,000 mls @ 999 mls/hr IV .BOLUS ONE Stop: 08/25/17 16:11 Last Admin: 08/25/17 15:32 Dose: 999 mls/hr Ropivacaine (Naropin 0.2%) Confirm Administered Dose 100 mls @ as directed .ROUTE .STK-MED ONE Stop: 08/25/17 18:40 Last Admin: 08/25/17 22:31 Dose: Not Given Ropivacaine (Naropin 0.2%) Confirm Administered Dose 200 mls @ as directed .ROUTE .STK-MED ONE Stop: 08/25/17 19:42 Misoprostol (Cytotec) 50 mcg VAG ONETIME ONE Stop: 08/25/17 07:10 Last Admin: 08/25/17 07:50 Dose: 50 mcg Misoprostol (Cytotec) 50 mcg VAG ONETIME ONE Stop: 08/25/17 11:59 Last Admin: 08/25/17 12:20 Dose: 50 mcg - Interaction Infant Disposition, : in Room with Family Infant Interaction: Holding Infant Feeding: Bottle Fed Infant, Difficulty with Latch-on, Encouraged to Breastfeed Support Person: , Other (see below) - Recovery Exam Fundal Tone: Firm Fundal Level: At Umbilicus Fundal Placement: Midline Lochia Amount: Small Lochia Color: Rubra/Red Perineum Description: Intact, Minimal Bruising/Swelling Episiotomy/Laceration: None Bladder Status: Voiding Urinary Elimination: Voided - Exam General: Alert, Oriented HEENT: Pupils Equal Neck: Supple Lungs: Clear to Auscultation, Normal Respiratory Effort Cardiovascular: Regular Rate, Regular Rhythm GI/Abdominal Exam: Normal Bowel Sounds, Soft, Non-Tender, No Organomegaly, No Distention, No Abnormal Bruit, No Mass, Pelvis Stable Extremities: Normal Inspection, Normal Range of Motion, Non-Tender, No Pedal Edema, Normal Capillary Refill Skin: Warm, Dry, Intact Wound/Incisions: Healing Well Neurological: No New Focal Deficit Psy/Mental Status: Alert, Normal Affect, Normal Mood - Problem List & Annotations (1) Elective induction of labor planned SNOMED Code(s): 348603688 Code(s): WAG3579 - Status: Acute Current Visit: Yes (2) SNOMED Code(s): 17787151 Code(s): Z34.90 - ENCNTR FOR SUPRVSN OF NORMAL , UNSP, UNSP TRIMESTER Status: Acute Current Visit: Yes Qualifiers: Weeks of gestation: 40 weeks Qualified Code(s): Z3A.40 - 40 weeks gestation of (3) Normal labor and delivery SNOMED Code(s): 59528638, 585873443 Code(s): O80 - ENCOUNTER FOR FULL-TERM UNCOMPLICATED DELIVERY Status: Acute Current Visit: Yes - Problem List Review Problem List Initiated/Reviewed/Updated: Yes - My Orders Last 24 Hours: My Active Orders 08/26/17 Breakfast Regular Diet [DIET] - Assessment Assessment:: 08/25/17 27 year old 40 weeks with complications female GBS neg ABO O neg, rhogam workup 08/26/17 Feeling great Flow is light Mood happy Is pumping and feeding and using formula too. HGB 10.2 08/27/17 No problems, feeling great and ready for discharge - Plan Plan:: 27 yr old 40 weeks induction per patient request Field score 9 /-1 anterior, Cat 1 strip Misoprostol 50 mcg this morning HGB 12 PLT 164,000 Plan for vaginal delivery alter today reassess at noon She would like an epidural later today 08/25/17 Routine cares Rhogam if needed Support home 24-48 hours- 08/26/17 Routine cares I don't see the workup for the Rhogam done yet. Home tomorrow 08/27/17 Home today see me in six weeks for a post visit
== END 2017-08-27 10:20 | disposition home or self-care (01) | DRG 775 ==
LOC: JP.OB 07:07 → OBSVTOIN 20:32 → JP.OB 20:32 → JP.MS 21:35
PROVIDERS: ADMIT Nurse Practitioner Family; ATTEND Nurse Practitioner Family
PROC: 10E0XZZ Delivery of Products of Conception, External Approach (ICD-10-PCS; principal; 2017-08-25)
PROC: 3E033VJ Introduction of Other Hormone into Peripheral Vein, Percutaneous Approach (ICD-10-PCS; 2017-08-25)
PROC: 3E0P7VZ Introduction of Hormone into Female Reproductive, Via Natural or Artificial Opening (ICD-10-PCS; 2017-08-25)
PROC: 10907ZC Drainage of Amniotic Fluid, Therapeutic from Products of Conception, Via Natural or Artificial Opening (ICD-10-PCS; 2017-08-25)
PROC: 00HU33Z Insertion of Infusion Device into Spinal Canal, Percutaneous Approach (ICD-10-PCS; 2017-08-25)
PROC: 3E0R3BZ Introduction of Anesthetic Agent into Spinal Canal, Percutaneous Approach (ICD-10-PCS; 2017-08-25)
DX: O69.81X0 Labor and delivery complicated by cord around neck, without compression, not applicable or unspecified (principal); Z37.0 Single live birth; Z3A.40 40 weeks gestation of pregnancy; O63.1 Prolonged second stage (of labor); Z90.49 Acquired absence of other specified parts of digestive tract; Z87.891 Personal history of nicotine dependence
CPT/HCPCS: 36415; 59409; 80305; 81001; 85025; 99211; A9270-GY; J2590; J2795; J7050; J7120

== ENCOUNTER 2017-11-18 21:07 | Emergency (ER) | payer MEDICAID ==
[2017-11-18 21:54] VITALS: BP 149/80
--- NOTE | 2017-11-18 22:20 | EDM.PDOC ---
ED HPI GENERAL MEDICAL PROBLEM - General Chief Complaint: Allergic Reaction Stated Complaint: REACTION Time Seen by Provider: 11/18/17 22:01 Source of Information: Reports: Patient, Family, RN Notes Reviewed History Limitations: Reports: No Limitations - History of Present Illness INITIAL COMMENTS - FREE TEXT/NARRATIVE: 27-year-old female presents to the emergency department today with complaint of allergic reaction, she recently underwent partial thyroidectomy and was provided hydrocodone for pain control, she states she's taken a couple doses of the medication she's never had that before and she is now developed red arms is no difficulty swallowing no shortness of breath, the redness on her arms is not itchy and her pain is controlled - Related Data Allergies Allergy/AdvReac Type Severity Reaction Status Date / Time No Known Allergies Allergy Verified 07/23/13 09:45 Home Meds: Home Meds Acetaminophen [Tylenol] 325 mg PO Q4H PRN 07/23/13 [History] Desogestrel-Ethinyl Estradiol [Isibloom 28 Day Tablet] 1 tab PO DAILY 11/18/17 [ History] Hydrocodone/Acetaminophen [Hydrocodon-Acetaminophen 5-325] 1 each PO Q4H PRN [History] Past Medical History Gastrointestinal History: Reports: [employer] History: Reports: Other OB/BYN History: Three vaginal deliveries without complication, last delivery date 08-25-2017. Psychiatric History: Reports: ADD, Panic Attack - Infectious Disease History Infectious Disease History: Reports: Chicken Pox - Past Surgical History GI Surgical History: Reports: Cholecystectomy Other GI Surgeries/Procedures: stools are loose after cholecystectomy, Primary care provider is aware. Endocrine Surgical History: Reports: Thyroidectomy, Other (See Below) Other Endocrine Surgeries/Procedures: partial thyroidectomy due to lump 2017 Social & Family History - Family History Family Medical History: Noncontributory - Tobacco Use Smoking Status *Q: Current Some Day Smoker Years of Tobacco use: 5 Packs/Tins Daily: 0.1 Used Tobacco, but Quit: Yes Month/Year Tobacco Last Used: 2017 Second Hand Smoke Exposure: No - Caffeine Use Caffeine Use: Reports: Coffee Other Caffeine Use: 2 pops per day - Recreational Drug Use Recreational Drug Use: No ED ROS ALLERGIC REACTION - Review of Systems Review Of Systems: See Below Constitutional: Reports: No Symptoms Respiratory: Reports: No Symptoms Cardiovascular: Reports: No Symptoms GI/Abdominal: Reports: No Symptoms Skin: Reports: Rash ED EXAM GENERAL NO PERIP PULSE - Physical Exam Exam: See Below Exam Limited By: No Limitations General Appearance: Alert, WD/WN, No Apparent Distress Respiratory/Chest: No Respiratory Distress, Lungs Clear, Normal Breath Sounds, No Accessory Muscle Use Cardiovascular: Regular Rate, Rhythm, No Murmur Skin Exam: Warm, Rash (Mild). No: Mottled, Pallor Course - Vital Signs Last Recorded V/S: Last Vital Signs Temp 98.2 F 11/18/17 22:00 Pulse 109 H 11/18/17 22:00 Resp 13 11/18/17 22:00 BP 149/80 H 11/18/17 22:00 Pulse Ox 98 11/18/17 22:00 - Orders/Labs/Meds Meds: Medications Discontinued Medications Generic Name Dose Route Start Last Admin Trade Name Juan PRN Reason Stop Dose Admin Diphenhydramine HCl 25 mg 11/18/17 22:11 Benadryl PO 11/18/17 22:12 ONETIME ONE Departure - Departure Time of Disposition: 22:19 Disposition: Home, Self-Care 01 Condition: Good Clinical Impression: Medication reaction Qualifiers: Encounter type: initial encounter Qualified Code(s): T50.905A - Adverse effect of unspecified drugs, medicaments and biological substances, initial encounter - Discharge Information Referrals: Chuyita Harper CNM [Primary Care Provider] - Additional Instructions: Stop the hydrocodone, use Benadryl as needed for any rash or itching symptoms, try the oxycodone for pain control, Please followup with your primary care provider in 3-5 days if not better, please call return to the emergency department with worsening of symptoms. - Assessment/Plan Plan: Assessment Acuity = acute Site and laterality = med reaction Etiology = unclear etiology Manifestations = rash Location of injury = Home Lab values = none Plan stop the hydrocodone, prescription written for oxycodone 5/325 one tablet by mouth 3 times a day when necessary total #10 follow-up with primary care in 3-5 days if not better This note was dictated using [employer] recognition software please call with any questions on syntax or grammar.
[2017-11-18] MEDS: diphenhydrAMINE 25 MG Cap PO ONE (22:29)
== END 2017-11-18 22:34 | disposition home or self-care (01) ==
LOC: JP.ED 21:07
DX: L27.0 Generalized skin eruption due to drugs and medicaments taken internally (principal); T40.2X5A Adverse effect of other opioids, initial encounter; F17.210 Nicotine dependence, cigarettes, uncomplicated; Z79.899 Other long term (current) drug therapy
CPT/HCPCS: 99283; A9270